=== PATIENT | female | born 1990 | race Caucasian/White ===

== ENCOUNTER → 2024-07-28 16:06 | Outpatient (CLI) | payer BC, SELFPAY ==
--- NOTE | 2024-07-28 16:07 | DI.ECHO.S_ITS ---
[facility] : : [address] : : [place] : : [id number] : : Phone: [phone] Echocardiogram Report + + :Name: ARELI MISTRY Study Date: 07/28/2024 Height: 62 in : :[facility] ReadingLocation: Weight: 151 lb : : Gender: Female BSA: 1.7 m2 : :: 1990 Age: 34 yrs BP: 123/81 mmHg: :Reason For Study: HISTORY OF ANOMALY IN PRIOR : :Ordering Physician: CRISTIAN, : :LUH Mathews Performed By: Luis A Boone : :Referring: UNSPECIFIED : + + Interpretation Summary PT IS 20 WEEKS . 1) Normal left ventricular thickness, size, wall motion, and systolic function (EF 55-60%). 2) Normal right ventricular size and function. 3) No significant valvular abnormalities. 4) No prior Echo available for comparison. Procedure: A two-dimensional transthoracic echocardiogram with color flow and Doppler was performed. The study quality was technically good. There is no prior echocardiogram noted for this patient. The patient was in normal sinus rhythm during the exam. Left Ventricle: The left ventricle is normal in size. There is normal left ventricular wall thickness. There is no ventricular septal defect visualized. The ejection fraction is estimated to be 55-60%. There are no focal wall motion abnormalities. Diastolic parameters suggest probable normal left ventricular diastolic function and normal filling pressures. Right Ventricle: The right ventricle is normal in size and function. Atria: The left atrial size is normal. Right atrial size is normal. There is no Doppler evidence for an interatrial shunt. Mitral Valve: The mitral valve leaflets appear normal. There is no evidence of stenosis, fluttering, or prolapse. There is trace mitral regurgitation. Aortic Valve: The aortic valve is trileaflet. The aortic valve opens well. There is no aortic valve stenosis. There is trace aortic regurgitation. Tricuspid Valve: The tricuspid valve leaflets are thin and pliable. There is trace tricuspid regurgitation. The right ventricular systolic pressure is estimated to be at least 30 mmHg based on an estimated right atrial pressure of 8 mm Hg. Pulmonic Valve: The pulmonic valve leaflets are thin and pliable; valve motion is normal. There is trace pulmonic regurgitation. Great Vessels: The aortic root is normal size. The dimensions of the ascending aorta are normal. The pulmonary artery is normal size. The IVC is dilated (diameter is greater than 2.1 cm) yet it collapses greater than 50% with a sniff. This suggests a right atrial pressure of 8 mm Hg. Pericardium/ Pleura There is no pericardial effusion. There is no pleural effusion. MMode/2D Measurements & Calculations LVIDd: 4.7 cm LVOT diam: 1.9 cm LVIDs: 3.0 cm Ao root diam: 2.5 cm FS: 35.6 % asc Aorta Diam: 3.0 cm EPSS: 0.71 cm Ao Arch Diam (Prox Trans): 1.6 cm IVSd: 0.82 cm LVPWd: 0.86 cm LV awad. diameter/BSA (cm/m^2): 2.8 LV sys. diameter/BSA (cm/m^2): 1.8 LA A2 area: 16.8 cm2 RA long axis: 4.7 cm LA A4 area: 19.0 cm2 RA area: 16.7 cm2 LA length (vol): 5.7 cm RA vol: 49.9 ml LA vol: 47.0 ml RA : 29.4 ml/m2 LA vol index: 27.7 ml/m2 IVC diam: 2.1 cm RVD1 (basal): 3.7 cm RVD2 (mid): 3.0 cm TAPSE: 3.3 cm Doppler Measurements & Calculations Ao V2 max: 166.5 cm/sec LVOT Max Matthew: 98.8 cm/sec Ao V2 mean: 110.0 cm/sec LV V1 max P.9 mmHg Ao max P.1 mmHg LV V1 VTI: 22.4 cm Ao mean P.6 mmHg DEVYN(I,D): 2.1 cm2 Ao V2 VTI: 32.2 cm DEVYN(V,D): 1.8 cm2 sev ratio: 0.70 DEVYN indexed to BSA (cm^2/m^2): 1.2 MV E max matthew: 98.8 cm/sec TR max matthew: 234.1 cm/sec MV A max matthew: 50.7 cm/sec TR max P.9 mmHg MV E/A: 1.9 PA V2 max: 62.3 cm/sec Med Peak E' Matthew: 14.1 cm/sec PA V2 mean: 41.7 cm/sec E/E' med: 7.0 PA mean P.80 mmHg Lat Peak E' Matthew: 18.5 cm/sec PA pr(Accel): 17.3 mmHg E/E' lat: 5.3 E/e' average: 6.2 MV dec time: 0.14 sec SV(LVOT): 66.6 ml Reading Physician:05:36 PM
== END ==
PROVIDERS: PCP Family Medicine; Referring Provider Obstetrics & Gynecology; Visit Provider Obstetrics & Gynecology
DX: O09.292 Supervision of pregnancy with other poor reproductive or obstetric history, second trimester (principal); Z3A.20 20 weeks gestation of pregnancy
CPT/HCPCS: 93306